=== PATIENT | male | born 1985 | race Hispanic/Latino ===

== ENCOUNTER 2019-09-03 14:25 | Emergency (ER) | payer BC, OTHER ==
[2019-09-03] MEDS ORDERED: dexAMETHasone 10 MG/ML VIAL ONE (15:11)
[2019-09-03] MEDS ORDERED: IBUPROFEN 400 MG TAB ONE (15:12)
--- NOTE | 2019-09-03 17:03 | RAD REPORT ---
EXAM DESCRIPTION: RAD - Neck Soft Tissue - 09/03/2019 4:26 pm CLINICAL HISTORY: Neck pain COMPARISON: None. TECHNIQUE: Frontal and lateral views of the neck soft tissues performed. FINDINGS: Adenoid tissue within normal limits. Tonsils are enlarged. There is no prevertebral soft t issue thickening. Epiglottis is normal. No subglottic narrowing on the frontal projection. Soft tissu es of the neck are prominent but may be baseline for the patient. This examination is not adequate fo r an accurate cervical lymph node assessment. No foreign body or abnormal air density. No disk or bony abnormality. IMPRESSION: Enlarged tonsils. No abnormal air collection or prevertebral soft tissue thickening. Normal epiglottis.
--- NOTE | 2019-09-03 17:12 | EDPHYS ---
Physician Documentation [facility] Name: Loc Ahumada Jr Age: 33 yrs Sex: Male : 1985 Arrival Date: 09/03/2019 Time: 14:30 Bed 17 Private MD: ED Physician Mike Ruff HPI: 09/03 17:06 This 33 yrs old Male presents to ER via Ambulatory with complaints of Sore la1 Throat. 17:06 The patient presents with sore throat. The patient describes throat pain as constant, la1 scratchy. Onset: The symptoms/episode began/occurred 5 day(s) ago. Severity of symptoms: At their worst the symptoms were moderate, in the emergency department the symptoms are unchanged. Modifying factors: the symptoms are aggravated by swallowing. Associated signs and symptoms: Pertinent positives: fever. seen at urgent care 2 days ago and put on Augmentin was strep negative at that time, family member with strep 2 weeks ago. Historical: - Allergies: 14:46 No Known Allergies; iw - Home Meds: 14:46 None [Active]; iw - PMHx: 14:46 None; iw - PSHx: 14:46 None; iw - Immunization history:: Adult Immunizations Adult Immunizations not up to date. - Social history:: Smoking status: Patient/guardian denies using tobacco. - Ebola Screening: : Patient negative for fever greater than or equal to 101.5 degrees Fahrenheit, and additional compatible Ebola Virus Disease symptoms Patient denies exposure to infectious person Patient denies travel to an Ebola-affected area in the 21 days before illness onset No symptoms or risks identified at this time. ROS: 17:08 Constitutional: + for chills ENT: + for sore throat Neck: Negative for injury, pain, la1 and swelling, Cardiovascular: Negative for chest pain, palpitations, and edema, Respiratory: Negative for shortness of breath, cough, wheezing, and pleuritic chest pain, Abdomen/GI: Negative for abdominal pain, nausea, vomiting, diarrhea, and constipation, MS/Extremity: Negative for injury and deformity, Neuro: Negative for headache, weakness, numbness, tingling, and seizure. Exam: 17:08 Constitutional: This is a well developed, well nourished patient who is awake, alert, la1 and in no acute distress. Eyes: Pupils equal round and reactive to light, extra-ocular motions intact. Periorbital areas with no swelling, redness, or edema. 17:08 Neck: moderate cervial lymphadenopathy Supple, full range of motion without nuchal rigidity, or vertebral point tenderness. No Meningismus. Chest/axilla: Normal chest wall appearance and motion. Nontender with no deformity. No lesions are appreciated. Cardiovascular: Regular rate and rhythm with a normal S1 and S2. No gallops, murmurs, or rubs. Normal PMI, no JVD. No pulse deficits. Respiratory: Lungs have equal breath sounds bilaterally, clear to auscultation and percussion. No rales, rhonchi or wheezes noted. No increased work of breathing, no retractions or nasal flaring. Abdomen/GI: Soft, non-tender, with normal bowel sounds. No distension or tympany. No guarding or rebound. No evidence of tenderness throughout. 17:08 ENT: Posterior pharynx: Airway: normal, Tonsils: bilaterally enlarged, with erythema, with exudate, Uvula: midline, erythema, that is moderate, exudate, that is moderate, peritonsillar mass, is not appreciated. Vital Signs: 14:45 BP 124 / 85; Pulse 91; Resp 16; Temp 100.0(O); Pulse Ox 95% on R/A; Weight 112.49 kg; iw Height 5 ft. 8 in. (172.72 cm); Pain 10/10; 17:24 BP 116 / 79; Pulse 81; Resp 18; Pulse Ox 99% on R/A; Pain 4/10; em 14:45 Body Mass Index 37.71 (112.49 kg, 172.72 cm) iw MDM: 14:50 Patient medically screened. la1 17:09 Data reviewed: vital signs, nurses notes, lab test result(s), radiologic studies, I la1 have discussed the patient's presentation/case with the attending Emergency Department Physician; and as a result, I will discharge patient. Data interpreted: Pulse oximetry: on room air is 95 %. Interpretation: normal. Counseling: I had a detailed discussion with the patient and/or guardian regarding: the historical points, exam findings, and any diagnostic results supporting the discharge/admit diagnosis, the presence of at least one elevated blood pressure reading (>120/80) during this emergency department visit, lab results, radiology results, the need for outpatient follow up, an ENT specialist. ED course: Pt to continue augmentin he is taking currently, will await throat culture, return precautions given. . 09/03 15:01 Order name: Strep la1 09/03 15:01 Order name: [place] Screen Profile la1 09/03 15:31 Order name: Throat Culture EDMT 09/03 15:59 Order name: Neck Soft Tissue XRAY la1 Administered Medications: 15:20 Drug: Decadron 10 mg Route: PO; em 16:18 Follow up: Response: No adverse reaction; Marked relief of symptoms; Pain is decreased em 15:20 Drug: Motrin 800 mg Route: PO; em 16:18 Follow up: Response: No adverse reaction em Disposition: 09/04 07:22 Co-signature as Attending Physician, Mike Ruff MD I agree with the assessment and kdr plan of care. Disposition: 09/03/19 17:11 Discharged to Home. Impression: Acute pharyngitis. - Condition is Stable. - Discharge Instructions: Pharyngitis, [id number], Sore Throat, [id number], Rehydration, Adult. - Prescriptions for Medrol (Keshawn) 4 mg Oral Tablets, Dose Pack - take 1 tablet by ORAL route as directed - follow package instructions; 1 packet. - Work release form, Medication Reconciliation Form, Thank You Letter, Antibiotic Education form. - Follow up: Private Physician; When: 2 - 3 days; Reason: Recheck today's complaints, Re-evaluation by your physician. Follow up: Katie Pabon MD; When: As needed. - Problem is an ongoing problem. - Symptoms are unchanged. Signatures: Dispatcher [employer] Mike Mcgee MD MD kdr Munoz, Edgar, SENIOR SOFTWARE TESTER SENIOR SOFTWARE TESTER em Fabiana Ortiz, KAMERON RN iw Jerald Mendoza, SHIP RIGGER-C SHIP RIGGER-Cla1 Corrections: (The following items were deleted from the chart) 09/03 17:25 17:11 09/03/2019 17:11 Discharged to Home. Impression: Acute pharyngitis. Condition is em Stable. Forms are Medication Reconciliation Form, Thank You Letter, Antibiotic Education, Prescription Opioid Use. Follow up: Private Physician; When: 2 - 3 days; Reason: Recheck today's complaints, Re-evaluation by your physician. Follow up: Katie Pabon; When: As needed. Problem is an ongoing problem. Symptoms are unchanged. la1
--- NOTE | 2019-09-03 17:12 | ER ---
Nurse's Notes [facility] Name: Loc Ahumada Jr Age: 33 yrs Sex: Male : 1985 Arrival Date: 09/03/2019 Time: 14:30 Bed 17 Private MD: Diagnosis: Acute pharyngitis Presentation: 09/03 14:44 Presenting complaint: Patient states: went to [facility] on Friday, started on iw amoxicillin, strep was negative, still running fever, tonsils feel worse. Transition of care: patient was not received from another setting of care. Onset of symptoms was August 30, 2019. Risk Assessment: Do you want to hurt yourself or someone else? Patient reports no desire to harm self or others. Initial Sepsis Screen: Does the patient meet any 2 criteria? No. Patient's initial sepsis screen is negative. Does the patient have a suspected source of infection? No. Patient's initial sepsis screen is negative. Care prior to arrival: None. Medication(s) given: Tylenol. 14:44 Method Of Arrival: Ambulatory 14:44 Acuity: OSMEL 4 iw Historical: - Allergies: 14:46 No Known Allergies; iw - Home Meds: 14:46 None [Active]; iw - PMHx: 14:46 None; iw - PSHx: 14:46 None; iw - Immunization history:: Adult Immunizations Adult Immunizations not up to date. - Social history:: Smoking status: Patient/guardian denies using tobacco. - Ebola Screening: : Patient negative for fever greater than or equal to 101.5 degrees Fahrenheit, and additional compatible Ebola Virus Disease symptoms Patient denies exposure to infectious person Patient denies travel to an Ebola-affected area in the 21 days before illness onset No symptoms or risks identified at this time. Screenin:03 Abuse screen: Denies threats or abuse. Nutritional screening: No deficits noted. em Tuberculosis screening: No symptoms or risk factors identified. Fall Risk None identified. Assessment: 15:10 General: Appears in no apparent distress. uncomfortable, Behavior is calm, cooperative, em Reports fever for Denies fever. Pain: Complains of pain in left aspect of posterior pharynx and right aspect of posterior pharynx Pain currently is 10 out of 10 on a pain scale. Pain began last Friday. Neuro: Level of Consciousness is awake, alert, obeys commands, Oriented to person, place, time, situation, Appropriate for age. Cardiovascular: Capillary refill < 3 seconds Patient's skin is warm and dry. Respiratory: Airway is patent Respiratory effort is even, unlabored, Respiratory pattern is regular, symmetrical, Breath sounds are clear bilaterally. EENT: Nares are clear Oral mucosa is moist. Throat is reddened has enlarged tonsils. Derm: Skin is intact, is healthy with good turgor, Skin is pink, warm \T\ dry. Musculoskeletal: Capillary refill < 3 seconds, Range of motion: intact in all extremities. 15:30 Reassessment: I agree with the assessment made by BARBI Jay. sg 15:49 Reassessment: Patient appears in no apparent distress at this time. Patient and/or em family updated on plan of care and expected duration. Pain level reassessed. Patient is alert, oriented x 3, equal unlabored respirations, skin warm/dry/pink. Patient states feeling better. Patient states symptoms have improved. 16:25 Reassessment: wheeled to x-ray dept via wheelchair. em 17:23 Reassessment: Patient appears in no apparent distress at this time. Patient and/or em family updated on plan of care and expected duration. Pain level reassessed. Patient is alert, oriented x 3, equal unlabored respirations, skin warm/dry/pink. rates pain 4/10. Vital Signs: 14:45 BP 124 / 85; Pulse 91; Resp 16; Temp 100.0(O); Pulse Ox 95% on R/A; Weight 112.49 kg; iw Height 5 ft. 8 in. (172.72 cm); Pain 10/10; 17:24 BP 116 / 79; Pulse 81; Resp 18; Pulse Ox 99% on R/A; Pain 4/10; em 14:45 Body Mass Index 37.71 (112.49 kg, 172.72 cm) iw ED Course: 14:30 Patient arrived in ED. as 14:42 Jerald [facility]endo[facility]-C [facility]. la1 14:42 Mike Ruff MD is Attending Physician. la1 14:45 Triage completed. iw 14:45 Arm band placed on. iw 14:58 Pierre Bah LVN is Primary Nurse. em 15:03 Patient has correct armband on for positive identification. Bed in low position. Call em light in reach. 16:25 Neck Soft Tissue XRAY In Process Unspecified. EDMS 17:11 Katie Pabon MD is Referral Physician. la1 17:23 No provider procedures requiring assistance completed. Patient did not have IV access em during this emergency room visit. Administered Medications: 15:20 Drug: Decadron 10 mg Route: PO; em 16:18 Follow up: Response: No adverse reaction; Marked relief of symptoms; Pain is decreased em 15:20 Drug: Motrin 800 mg Route: PO; em 16:18 Follow up: Response: No adverse reaction em Outcome: 17:11 Discharge ordered by MD. la1 17:23 Discharged to home ambulatory. em 17:23 Condition: good 17:23 Discharge instructions given to patient, Instructed on discharge instructions, follow up and referral plans. medication usage, Demonstrated understanding of instructions, follow-up care, medications, Prescriptions given X 1. 17:25 Patient left the ED. em Signatures: Dispatcher [employer] EDGA Perez Ansari, KAMERON RN Pierre Huizar, ELECTRIC METER SETTER ELECTRIC METER SETTER em Tere Aranda Irene, KAMERON MELO iw Jerald Mendoza, BUCKET CHUCKER-C BUCKET CHUCKER-Cla1
[2019-09-03 19:01] VITALS: TEMP 100
[2019-09-03 19:03] VITALS: BP 116/79; O2SAT 99
== END 2019-09-03 17:25 | disposition home or self-care (01) ==
LOC: ER 14:25
DX: J02.9 Acute pharyngitis, unspecified (principal)
CPT/HCPCS: 87070; 36415; 86308; 87081; 70360; 99283; J1100

== ENCOUNTER 2022-02-23 17:48 | Emergency (ER) | payer BC ==
--- NOTE | 2022-02-23 18:23 | RAD REPORT ---
EXAM DESCRIPTION: CT - Ct Stroke Brain Wo Cont - 02/23/2022 6:09 pm CLINICAL HISTORY: Facial droop and headache COMPARISON: none TECHNIQUE: Computed axial tomography of the head was obtained. All CT scans are performed using dose optimization technique as appropriate and may include automated exposure control or mA/KV adjustment according to patient size. FINDINGS: An intracranial bleed is not seen . The ventricles are normal in caliber. No extra-axial fluid collection is noted. No significant hypodense areas within the brain Fluid within the right maxillary sinus. Mild mucoperiosteal thickening involves the ethmoid and maxil quynh sinuses. No fluid within the mastoids IMPRESSION: No acute intracranial abnormality is seen. If patient's symptoms persist MRI of the bra in would be recommended. Sinusitis Dr Ruff of the emergency room was notified at 6:18 p.m. February 23, 2022
--- NOTE | 2022-02-23 18:30 | ER ---
Nurse's Notes [facility] Name: Loc Ahumada Jr Age: 36 yrs Sex: Male : 1985 Arrival Date: 02/23/2022 Time: 17:49 Bed 4 Private MD: Diagnosis: Moreno's palsy Presentation: 02/23 18:14 Chief complaint: Patient states: Pt reporting headache yesterday, right sided facial ld1 drooping since 1800 yesterday. Coronavirus screen: At this time, the client does not indicate any symptoms associated with coronavirus-19. Ebola Screen: No symptoms or risks identified at this time. Initial Sepsis Screen: Does the patient meet any 2 criteria? No. Patient's initial sepsis screen is negative. Does the patient have a suspected source of infection? No. Patient's initial sepsis screen is negative. Risk Assessment: Do you want to hurt yourself or someone else? Patient reports no desire to harm self or others. Onset of symptoms was February 23, 2022. 18:14 Method Of Arrival: Ambulatory ld1 18:14 Acuity: OSMEL 2 ld1 Triage Assessment: 18:16 Headache History: Denies prior headaches. General: Appears in no apparent distress. ld1 comfortable, Behavior is calm, cooperative, appropriate for age. Pain: Denies pain. EENT: No signs and/or symptoms were reported regarding the EENT system. EENT:. Neuro: Level of Consciousness is awake, alert, obeys commands, Oriented to person, place, time, situation. Cardiovascular: Capillary refill < 3 seconds Patient's skin is warm and dry. Respiratory: Airway is patent Respiratory effort is even, unlabored. GI: Abdomen is round non-distended. : No signs and/or symptoms were reported regarding the genitourinary system. Derm: No signs and/or symptoms reported regarding the dermatologic system. Musculoskeletal: No signs and/or symptoms reported regarding the musculoskeletal system. 18:57 Pain: Pain Also complains of no other associated symptoms. bp Historical: - Allergies: 18:16 No Known Allergies; ld1 - Home Meds: 18:16 None [Active]; ld1 - PMHx: 18:16 None; ld1 - PSHx: 18:16 None; ld1 - Immunization history:: Adult Immunizations up to date, Client reports having NOT received the Covid vaccine. - Social history:: Smoking status: Patient denies any tobacco usage or history of. Patient/guardian denies using alcohol. Screenin:20 Abuse screen: Denies threats or abuse. Denies injuries from another. Nutritional bp screening: No deficits noted. Tuberculosis screening: No symptoms or risk factors identified. Fall Risk None identified. Assessment: 18:20 General: SEE TRIAGE NOTE. bp 18:56 Reassessment: PT D/C HOME AMBULATORY, DX WITH [facility]. bp Vital Signs: 18:14 BP 153 / 86; Pulse 84; Resp 21; Temp 98.3(TE); Pulse Ox 100% on R/A; Weight 106.59 kg; ld1 Height 5 ft. 10 in. (177.80 cm); Pain 0/10; 18:14 Body Mass Index 33.72 (106.59 kg, 177.80 cm) ld1 ED Course: 17:49 Patient arrived in ED. am2 18:00 Mike Ruff MD is Attending Physician. kdr 18:10 Ct Stroke Brain Wo Cont In Process Unspecified. EDMS 18:15 Sudhir Foreman, RN is Primary Nurse. bp 18:16 Triage completed. ld1 18:16 Arm band placed on right wrist. ld1 18:20 Patient has correct armband on for positive identification. Bed in low position. Call bp light in reach. Side rails up X2. 18:30 Inserted saline lock: 20 gauge in left antecubital area, using aseptic technique. Blood bp collected. 18:56 No provider procedures requiring assistance completed. IV discontinued, intact, bp bleeding controlled, No redness/swelling at site. Pressure dressing applied. Administered Medications: 18:30 Drug: predniSONE 60 mg Route: PO; bp Medication: 18:56 VIS not applicable for this client. bp Outcome: 18:30 Discharge ordered by . kdr 18:56 Discharged to home ambulatory. bp 18:56 Condition: stable 18:56 Discharge instructions given to patient, Instructed on discharge instructions, follow up and referral plans. medication usage, Demonstrated understanding of instructions, follow-up care, medications, Prescriptions given X 2. 18:57 Patient left the ED. bp Signatures: Dispatcher [employer] EDMN Mike Ruff MD MD kdr Moreno, Amanda am2 Sudhir Foreman, RN RN bp Nitza Garzon, RN RN ld1
--- NOTE | 2022-02-23 18:30 | EDPHYS ---
Physician Documentation [facility] Name: Loc Ahumada Jr Age: 36 yrs Sex: Male : 1985 Arrival Date: 02/23/2022 Time: 17:49 Bed 4 Private MD: ED Physician Mike Ruff HPI: 02/23 18:22 This 36 yrs old Male presents to ER via Ambulatory with complaints of Numbness kdr Of Face - right side, Headache. 18:22 The patient's problem is reported as a facial droop, on right. Onset: The kdr symptoms/episode began/occurred last night. Duration: This was a single incident, the symptoms became persistent. Context: symptoms became apparent occurred at home, occurred while the patient was at rest, Possible contributing factors include:. The symptoms are alleviated by nothing. The symptoms are aggravated by nothing. Associated signs and symptoms: Pertinent positives: headache, Pertinent negatives: agitation, ataxia, blurred vision, chest pain, combativeness, confusion, diaphoresis, diarrhea, dizziness, lightheadedness, nausea, numbness, palpitations, seizure, shortness of breath, tingling, vertigo, vomiting, weakness. Severity of symptoms: At their worst the symptoms were mild moderate just prior to arrival, in the emergency department the symptoms are unchanged. Patient's baseline: Neuro: alert and fully oriented, Motor: right-sided facial droop, Ambulation: walks without assistance, Speech: normal, The patient has a previous history of. The patient has not experienced similar symptoms in the past. The patient has not recently seen a physician. Patient states that he had a headache last evening and noted some facial asymmetry at that time. It has persisted today as he has been in his usual state of health is nontoxic-appearing. Patient has a classic Moreno's palsy presentation. Historical: - Allergies: 18:16 No Known Allergies; ld1 - Home Meds: 18:16 None [Active]; ld1 - PMHx: 18:16 None; ld1 - PSHx: 18:16 None; ld1 - Immunization history:: Adult Immunizations up to date, Client reports having NOT received the Covid vaccine. - Social history:: Smoking status: Patient denies any tobacco usage or history of. Patient/guardian denies using alcohol. ROS: 18:22 Constitutional: Negative for fever, chills, and weight loss, ENT: Negative for injury, kdr pain, and discharge, Neck: Negative for injury, pain, and swelling, Cardiovascular: Negative for chest pain, palpitations, and edema, Respiratory: Negative for shortness of breath, cough, wheezing, and pleuritic chest pain, Abdomen/GI: Negative for abdominal pain, nausea, vomiting, diarrhea, and constipation, Back: Negative for injury and pain, : Negative for injury, bleeding, discharge, and swelling, MS/Extremity: Negative for injury and deformity, Skin: Negative for injury, rash, and discoloration, Psych: Negative for depression, anxiety, suicide ideation, homicidal ideation, and hallucinations, Allergy/Immunology: Negative for hives, rash, and allergies, Endocrine: Negative for neck swelling, polydipsia, polyuria, polyphagia, and marked weight changes, Hematologic/Lymphatic: Negative for swollen nodes, abnormal bleeding, and unusual bruising. 18:22 Eyes: Positive for Negative for injury or acute deformity, itching, matting, pain, photophobia, redness, sunken appearance, swelling, tearing, vision loss. 18:22 Neuro: Positive for headache, weakness, Negative for altered mental status, dizziness, gait disturbance, seizure activity, speech changes, syncope, near syncope, tingling, tinnitus, tremor, visual changes. Exam: 18:22 Radiologist reports: [place]: Acute right sinusitis and negative head CT kdr 18:22 Constitutional: This is a well developed, well nourished patient who is awake, alert, and in no acute distress. Head/Face: Normocephalic, atraumatic. Except for classic Moreno's palsy presentation Eyes: Pupils equal round and reactive to light, extra-ocular motions intact. Lids and lashes normal. Conjunctiva and sclera are non-icteric and not injected. Cornea within normal limits. Periorbital areas with no swelling, redness, or edema. Neck: Trachea midline, no thyromegaly or masses palpated, and no cervical lymphadenopathy. Supple, full range of motion without nuchal rigidity, or vertebral point tenderness. No Meningismus. Chest/axilla: Normal chest wall appearance and motion. Nontender with no deformity. No lesions are appreciated. Cardiovascular: Regular rate and rhythm with a normal S1 and S2. No gallops, murmurs, or rubs. Normal PMI, no JVD. No pulse deficits. 18:22 Neuro: Orientation: is normal, Mentation: is normal, Cranial nerves: facial droop noted on right, with forehead involved. Speech is clear and appropriate. Tongue strength is normal. Vital Signs: 18:14 BP 153 / 86; Pulse 84; Resp 21; Temp 98.3(TE); Pulse Ox 100% on R/A; Weight 106.59 kg; ld1 Height 5 ft. 10 in. (177.80 cm); Pain 0/10; 18:14 Body Mass Index 33.72 (106.59 kg, 177.80 cm) ld1 MDM: 18:22 Data reviewed: vital signs, nurses notes, radiologic studies. Counseling: I had a kdr detailed discussion with the patient and/or guardian regarding: the historical points, exam findings, and any diagnostic results supporting the discharge/admit diagnosis, radiology results, the need for outpatient follow up. 18:30 Patient medically screened. kdr 02/23 18:02 Order name: EKG; Complete Time: 18:03 kdr 02/23 18:02 Order name: Accucheck; Complete Time: 18:41 kdr 02/23 18:02 Order name: Cardiac monitoring; Complete Time: 18:17 kdr 02/23 18:02 Order name: EKG - Nurse/Tech; Complete Time: 18:41 kdr 02/23 18:05 Order name: Ct Stroke Brain Wo Cont EDMS 02/23 18:02 Order name: O2 Per Protocol; Complete Time: 18:17 kdr 02/23 18:02 Order name: O2 Sat Monitoring; Complete Time: 18:17 kdr Administered Medications: 18:30 Drug: predniSONE 60 mg Route: PO; bp Disposition Summary: 02/23/22 18:30 Discharge Ordered Location: Home kdr Problem: new kdr Symptoms: are unchanged kdr Condition: Stable kdr Diagnosis - Moreno's palsy kdr Followup: kdr - With: Private Physician - When: 2 - 3 days - Reason: If symptoms return, Further diagnostic work-up, Recheck today's complaints, Continuance of care, Re-evaluation by your physician Discharge Instructions: - Discharge Summary Sheet kdr - Moreno Palsy, Adult kdr - Sinusitis, Adult, [id number] kdr Forms: - Medication Reconciliation Form kdr - Thank You Letter kdr Prescriptions: - prednisone 10 mg Oral tablet - take 2 tablets by ORAL route 3 times per day Take 2 tablet three times a day kdr for four days, then 1 table three times a day for two days then 1 tablet two times a day for two days then 1 tablet once for two days. Dispense quantity sufficient; 10 tablet; Refills: 0, Product Selection Permitted - Amoxicillin 500 mg Oral Capsule - take 1 capsule by ORAL route every 8 hours for 7 days; 21 tablet; Refills: 0, kdr Product Selection Permitted Signatures: Dispatcher [employer] EDMS Mike Ruff MD MD kdr Sudhir Foreman, RN RN bp Nitza Garzon, RN RN ld1 Corrections: (The following items were deleted from the chart) 18:03 18:01 Head Brain Wo Cont+CT.RAD.BRZ ordered. EDNE EDMS 18:42 18:02 IV Saline Lock ordered. kdr bp 18:42 18:02 Labs collected and sent ordered. kdr bp 18:42 18:02 NPO ordered. kdr bp 18:42 18:02 Stroke Swallow Screen ordered. kdr bp
[2022-02-23] MEDS ORDERED: predniSONE 20 MG TAB ONE (18:31)
[2022-02-23 19:12] VITALS: BP 153/86; TEMP 98.3; O2SAT 100
--- NOTE | 2022-02-27 07:56 | EKG ---
Test Date: 2022-02-23 Test Time: 18:34:31 Residential Door Unit Installer: BP MEASUREMENT RESULTS: Intervals: Rate: 66 OR: 138 QRSD: 104 QT: 380 QTc: 398 [place]: P: 7 OR: 138 QRS: 58 T: 24 INTERPRETIVE STATEMENTS: Normal sinus rhythm Normal ECG No previous ECG available for comparison Electronically Signed On 02-27-22 07:50:56 CDT by Ritesh Gillette
== END 2022-02-23 18:57 | disposition home or self-care (01) ==
LOC: ER 17:48
DX: G51.0 Bell's palsy (principal); R51.9 Headache, unspecified
CPT/HCPCS: 93005; 70450; 99284; J7512